=== PATIENT | female | born 1985 | race Hispanic/Latino ===

== ENCOUNTER 2019-06-14 14:35 | Emergency (ER) | payer OTHER ==
[2019-06-14] MEDS ORDERED: LIDOCAINE HCL 1% 20 ML VIAL ONE (15:24)
[2019-06-14] MEDS ORDERED: ONDANSETRON HCL 4 MG/2 ML VIAL ONE (15:24)
[2019-06-14] MEDS ORDERED: MORPHINE SULFATE 4 MG/1ML SYG ONE (15:25)
[2019-06-14] MEDS ORDERED: TETANUS/DIPHTHERIA TOXOID [ADULT] 0.5 ML VIAL IM ONE (15:27)
[2019-06-14] MEDS ORDERED: CEFAZOLIN SODIUM 1 GM VIAL ONE (15:38)
[2019-06-14] MEDS ORDERED: SODIUM CHLORIDE 0.9% 100 ML IV ONE (15:38)
== END 2019-06-14 17:18 | disposition home or self-care (01) ==
LOC: EDH 14:35
DX: S81.011A Laceration without foreign body, right knee, initial encounter (principal); W18.39XA Other fall on same level, initial encounter; Y93.01 Activity, walking, marching and hiking; Y92.89 Other specified places as the place of occurrence of the external cause; Y99.8 Other external cause status
CPT/HCPCS: 12035; 73562; 90471; 90714; 96365; 96375; 99284; J0690; J2270; J2405

== ENCOUNTER 2021-12-09 21:22 | Emergency (ER) | payer OTHER | END 2021-12-09 21:45 | disposition left against medical advice (07) | LOC: EDH 21:22 | DX: R50.9 Fever, unspecified (principal); Z53.21 Procedure and treatment not carried out due to patient leaving prior to being seen by health care provider ==